=== PATIENT | female | born 1995 | race Caucasian/White ===

== ENCOUNTER 2017-01-01 20:11 | Emergency (ER) | payer OTHER ==
[~2017-01-01 20:11] MED LIST: ZOFRAN ODT4 MG SL
[2017-01-01 22:00] VITALS: BP 135/95
== END 2017-01-01 22:00 | disposition home or self-care (01) ==
LOC: ED 20:11
DX: N39.0 Urinary tract infection, site not specified (principal); R03.0 Elevated blood-pressure reading, without diagnosis of hypertension; Z90.89 Acquired absence of other organs; Z88.1 Allergy status to other antibiotic agents

== ENCOUNTER 2017-02-04 14:29 | Emergency (ER) | payer OTHER ==
[~2017-02-04] VITALS: Ht 154.9 cm; Wt 75.7 kg
[2017-02-04 14:40] VITALS: Ht 154.9 cm; Wt 75.7 kg
[2017-02-04 16:41] VITALS: BP 141/67
== END 2017-02-04 16:41 | disposition home or self-care (01) ==
LOC: ED 14:29
DX: B02.9 Zoster without complications (principal)